=== PATIENT | male | born 1940 | race Two or more races ===

== ENCOUNTER 2018-10-21 19:10 | Inpatient (IN) | payer MEDICAID ==
[~2018-10-21] VITALS: Ht 170.2 cm; Wt 89.5 kg
[2018-10-21 19:45] LABS: BG BASE EXCESS -5.4 mmol/L (-2.0-2.0); BG BILEVEL POS AIRWAY PRESSURE 15/5; BG CARBOXYHEMOGLOBIN 0.2 % (0.5-1.5); BG DEOXYHEMOGLOBIN 1.9 % (0.0-5.0); BG FRACTION INSPIRED OXYGEN 50; BG HCO3 ACT 19.5 mmol/L (22.0-26.0); BG METHEMOGLOBIN 0.3 % (0.0-1.5); BG OXYGEN SATURATION 98.1 % (92.0-98.5); BG OXYHEMOGLOBIN 97.6 % (94.0-97.0); BG PH 7.352 (7.350-7.450); BG PO2 128.1 mmHg (75.0-100.0); BG SAMPLE SITE RIGHT RADIAL; BG TOTAL HEMOGLOBIN 11.6 g/dL (12.0-18.0); BG VENT MODE MASK - BIPAP; BG VENT RATE 14 set
[2018-10-21 19:58] LABS: HEMATOCRIT. 35.5 % (42.0-52.0); HEMOGLOBIN. 10.6 g/dL (14.0-18.0); MEAN CORPUSCULAR HEMOGLOBIN 18.2 pg (28.0-32.0); MEAN CORPUSCULAR VOLUME 60.8 fL (80.0-94.0); MEAN PLATELET VOLUME 10.1 fl (7.4-10.4); PLATELET 122 x1000/uL (130-400); RED BLOOD CELL COUNT 5.84 mill/uL (4.7-6.1); RED CELL DISTRIBUTION WIDTH 17.7 % (11.6-14.6)
[2018-10-21 20:02] LABS: CHLORIDE 111 mEq/L (98-107)
[2018-10-21] MEDS ORDERED: ENALAPRIL 2.5MG/2ML VIAL 2ML IV ONE (20:30)
[2018-10-21] MEDS ORDERED: FUROSEMIDE 40MG/4ML VIAL IVP ONE (20:30)
[2018-10-21 20:36] LABS: PLATELET ESTIMATE NORMAL
[2018-10-21] MEDS ORDERED: ALBUTEROL (0.083%) 2.5MG/3ML NEB HHN ONE (20:45)
[2018-10-21] MEDS ORDERED: DEXTROSE 50% WATER 50ML SYRINGE IV ONE (20:45)
[2018-10-21] MEDS ORDERED: INSULIN REGULAR (HUMULIN R) 300UNITS/3ML IV ONE (20:45)
[2018-10-21] MEDS ORDERED: SODIUM BICARBONATE 8.4% 1 MEQ/ML 50ML SYR IV ONE (20:45)
[2018-10-21] MEDS ORDERED: ENOXAPARIN 40MG/0.4ML SYR SUBCUT SCH (21:00)
[2018-10-21] MEDS ORDERED: ONDANSETRON HCL 4MG/2ML INJ IV PRN (21:00)
[2018-10-21] MEDS ORDERED: ZOLPIDEM TARTRATE 5MG TABLET PO PRN (21:00)
[2018-10-21] MEDS ORDERED: FAMOTIDINE 20MG TABLET PO SCH (21:00)
[2018-10-21] MEDS ORDERED: CLONIDINE 0.1MG TABLET PO PRN (21:00)
[2018-10-21] MEDS ORDERED: MAGNESIUM/ALUMINUM HYDROXIDE/SIMETHICONE 30ML UDC PO PRN (21:00)
[2018-10-21] MEDS ORDERED: NITROGLYCERIN 0.4MG TABLET SL SL PRN (21:00)
[2018-10-21] MEDS ORDERED: ACETAMINOPHEN 325MG TABLET PO PRN (21:00)
[2018-10-21] MEDS ORDERED: GUAIFENESIN 200MG/10ML SUGAR FREE UDC PO PRN (21:00)
[2018-10-21] MEDS ORDERED: DOCUSATE SODIUM 100MG CAPSULE PO PRN (21:00)
[2018-10-21] MEDS ORDERED: TRAMADOL 50MG TABLET PO PRN ×2 (21:00→21:45)
[2018-10-21] MEDS ORDERED: IPRATROPIUM/ALBUTEROL 0.5-3(2.5)MG/3ML NEB INH PRN (21:00)
[2018-10-21 21:12] LABS: ETHANOL BLOOD < 10 mg/dL
[2018-10-21 21:14] LABS: LDL CHOLESTEROL 62 mg/dL (5-100)
[2018-10-21 21:15] LABS: HDL CHOLESTEROL 92 mg/dL (40-59)
[2018-10-21] MEDS ORDERED: DEXTROSE 50% WATER 50ML SYRINGE IV PRN (22:30)
[2018-10-21 22:46] LABS: TOTAL IRON BINDING CAPACITY 175 ug/dL (250-450)
[2018-10-21 22:49] LABS: PARTIAL THROMBOPLASTIN TIME 26.6 sec (23.4-31.0); PROTHROMBIN TIME 10.2 sec (9.1-11.1)
[2018-10-21] MEDS: FUROSEMIDE 40MG/4ML VIAL IVP SCH (23:00)
[2018-10-21] MEDS ORDERED: SODIUM POLYSTYRENE SULFONATE 15 G/60 ML BOT PO SCH (23:00)
[2018-10-21 23:07] LABS: FOLIC ACID (FOLATE) SERUM 12.8 ng/mL (>5.38)
[2018-10-21 23:15] VITALS: BP 139/75
[2018-10-21] MEDS ORDERED: METOLAZONE 5MG TABLET PO SCH (23:15)
[2018-10-22] VITALS (20 sets, daily range): BP systolic 91–148; BP diastolic 45–91
[2018-10-22] MEDS ORDERED: ENOXAPARIN 100MG/ML SYR SUBCUT SCH
[2018-10-22] MEDS ORDERED: METOLAZONE 10MG TABLET PO SCH
[2018-10-22] MEDS: DILTIAZEM HCL 60MG TABLET PO SCH ×5 (00:01→23:58)
[2018-10-22 01:13] LABS: CREATINE KINASE MB FRACTION 5.1 ng/mL (0.5-3.6)
[2018-10-22 07:20] LABS: CREATINE KINASE MB FRACTION 4.9 ng/mL (0.5-3.6)
[2018-10-22] MEDS: INSULIN LISPRO 100 UNITS/ML SUBCUT SCH ×4 (08:00→21:00)
[2018-10-22] MEDS: BLOOD SUGAR DIAGNOSTIC STRIP TEST SCH ×4 (08:20→21:00)
[2018-10-22] MEDS: FAMOTIDINE 20MG TABLET PO SCH (09:03)
[2018-10-22] MEDS: FUROSEMIDE 40MG/4ML VIAL IVP SCH ×2 (09:03→22:43)
[2018-10-22] MEDS: ASPIRIN 325MG EC TABLET PO SCH (09:03)
[2018-10-22] MEDS ORDERED: METOLAZONE 10MG TABLET PO NR (14:00)
[2018-10-22] MEDS ORDERED: SODIUM POLYSTYRENE SULFONATE 15 G/60 ML BOT PO NR (14:00)
[2018-10-22] MEDS: CITRIC ACID/SODIUM CITRATE SOLN 15ML UDC PO SCH ×2 (14:27→17:23)
[2018-10-22] MEDS: IPRATROPIUM/ALBUTEROL 0.5-3(2.5)MG/3ML NEB HHN SCH (21:08)
[2018-10-22] MEDS: ENOXAPARIN 100MG/ML SYR SUBCUT SCH (23:59)
[2018-10-23] VITALS (12 sets, daily range): BP systolic 75–138; BP diastolic 49–78
[2018-10-23] MEDS: IPRATROPIUM/ALBUTEROL 0.5-3(2.5)MG/3ML NEB HHN SCH ×4 (02:23→20:45)
[2018-10-23] MEDS: DILTIAZEM HCL 60MG TABLET PO SCH ×2 (04:54→12:41)
[2018-10-23 07:21] LABS: PHOSPHORUS 4.6 mg/dL (2.5-4.9)
[2018-10-23 07:26] LABS: HEMATOCRIT. 33.9 % (42.0-52.0); HEMOGLOBIN. 10.3 g/dL (14.0-18.0); MEAN CORPUSCULAR HEMOGLOBIN 18.2 pg (28.0-32.0); RED BLOOD CELL COUNT 5.65 mill/uL (4.7-6.1); RED CELL DISTRIBUTION WIDTH 17.4 % (11.6-14.6)
[2018-10-23 07:30] LABS: HEPATITIS B SURFACE ANTIGEN NEGATIVE
[2018-10-23] MEDS: BLOOD SUGAR DIAGNOSTIC STRIP TEST SCH ×4 (07:57→21:54)
[2018-10-23] MEDS: INSULIN LISPRO 100 UNITS/ML SUBCUT SCH ×4 (07:57→23:37)
[2018-10-23 07:58] LABS: HEPATITIS A AB IGM NEGATIVE (NEGATIVE)
[2018-10-23 08:34] LABS: BG BASE EXCESS 0.3 mmol/L (-2.0-2.0); BG CARBOXYHEMOGLOBIN 0.1 % (0.5-1.5); BG FRACTION INSPIRED OXYGEN 21; BG HCO3 ACT 25.3 mmol/L (22.0-26.0); BG OXYHEMOGLOBIN 95.9 % (94.0-97.0); BG PCO2 42.3 mmHg (35.0-45.0); BG PH 7.395 (7.350-7.450); BG PO2 84.9 mmHg (75.0-100.0); BG SAMPLE SITE RIGHT BRACHIAL; BG VENT MODE ROOM AIR
[2018-10-23] MEDS: CITRIC ACID/SODIUM CITRATE SOLN 15ML UDC PO SCH ×3 (08:58→18:01)
[2018-10-23] MEDS: ASPIRIN 325MG EC TABLET PO SCH (08:58)
[2018-10-23] MEDS: FUROSEMIDE 40MG/4ML VIAL IVP SCH ×2 (08:58→21:52)
[2018-10-23] MEDS: FAMOTIDINE 20MG TABLET PO SCH (08:58)
[2018-10-23] MEDS ORDERED: REGADENOSON 0.4 MG/5 ML IV NR (14:15)
[2018-10-23] MEDS: LOSARTAN POTASSIUM 50 MG TABLET PO SCH (15:04)
[2018-10-23] MEDS: AMIODARONE HCL 200 MG TABLET PO SCH ×2 (15:04→21:53)
[2018-10-23 15:37] LABS: CLARITY URINE CLEAR (CLEAR); COLOR URINE YELLOW (YELLOW); KETONES URINE NEGATIVE (NEGATIVE); LEUKOCYTE ESTERASE URINE NEGATIVE (NEGATIVE); NITRITE URINE NEGATIVE (NEGATIVE); OCCULT BLOOD URINE 1+ (NEGATIVE); PROTEIN URINE 2+ (NEGATIVE); SPECIFIC GRAVITY URINE 1.009 (1.005-1.030); UROBILINOGEN URINE 0.2 E.U./dL (0.2-1.0)
[2018-10-23 16:30] LABS: *AMPHETAMINES SCREEN URINE NEGATIVE (NEGATIVE); *BARBITURATES SCREEN URINE NEGATIVE (NEGATIVE); *BENZODIAZEPINES SCREEN URINE NEGATIVE (NEGATIVE); CANNABINOID URINE SCREEN NEGATIVE (NEGATIVE); PHENCYCLIDINE URINE SCREEN NEGATIVE (NEGATIVE)
[2018-10-23 16:31] LABS: *COCAINE SCREEN URINE NEGATIVE (NEGATIVE); METHADONE URINE SCREEN NEGATIVE (NEGATIVE); OPIATES URINE SCREEN NEGATIVE (NEGATIVE)
[2018-10-23 17:57] LABS: PLATELET ESTIMATE SLIGHTLY DECREASED
[2018-10-23 17:58] LABS: MEAN PLATELET VOLUME 10.6 fl (7.4-10.4); PLATELET 130 x1000/uL (130-400)
[2018-10-23] MEDS: CARVEDILOL 3.125 MG TABLET PO SCH (21:00)
[2018-10-23] MEDS: ENOXAPARIN 100MG/ML SYR SUBCUT SCH (23:35)
[2018-10-24] VITALS (12 sets, daily range): BP systolic 107–156; BP diastolic 53–87
[2018-10-24] MEDS: IPRATROPIUM/ALBUTEROL 0.5-3(2.5)MG/3ML NEB HHN SCH ×4 (01:30→20:50)
[2018-10-24 07:35] LABS: HEMATOCRIT. 34.8 % (42.0-52.0); HEMOGLOBIN. 10.8 g/dL (14.0-18.0); MEAN CORPUSCULAR HEMOGLOBIN 18.3 pg (28.0-32.0); MEAN CORPUSCULAR VOLUME 59.4 fL (80.0-94.0); MEAN PLATELET VOLUME 10.3 fl (7.4-10.4); PLATELET 116 x1000/uL (130-400); RED BLOOD CELL COUNT 5.86 mill/uL (4.7-6.1); RED CELL DISTRIBUTION WIDTH 16.8 % (11.6-14.6)
[2018-10-24 07:45] LABS: PHOSPHORUS 5.3 mg/dL (2.5-4.9)
[2018-10-24] MEDS: INSULIN LISPRO 100 UNITS/ML SUBCUT SCH ×4 (08:00→21:00)
[2018-10-24] MEDS: BLOOD SUGAR DIAGNOSTIC STRIP TEST SCH ×4 (08:05→21:41)
[2018-10-24 08:47] LABS: BG BASE EXCESS 3.6 mmol/L (-2.0-2.0); BG CARBOXYHEMOGLOBIN 0.8 % (0.5-1.5); BG DEOXYHEMOGLOBIN 5.8 % (0.0-5.0); BG FRACTION INSPIRED OXYGEN 21; BG HCO3 ACT 28.5 mmol/L (22.0-26.0); BG METHEMOGLOBIN 0.8 % (0.0-1.5); BG OXYGEN SATURATION 94.1 % (92.0-98.5); BG OXYHEMOGLOBIN 92.6 % (94.0-97.0); BG PCO2 44.3 mmHg (35.0-45.0); BG PH 7.426 (7.350-7.450); BG PO2 75.9 mmHg (75.0-100.0); BG SAMPLE SITE RIGHT RADIAL; BG TOTAL HEMOGLOBIN 12.7 g/dL (12.0-18.0); BG VENT MODE T-TUBE
[2018-10-24] MEDS: CITRIC ACID/SODIUM CITRATE SOLN 15ML UDC PO SCH (08:49)
[2018-10-24] MEDS: AMIODARONE HCL 200 MG TABLET PO SCH ×2 (08:49→21:41)
[2018-10-24] MEDS: ASPIRIN 325MG EC TABLET PO SCH (08:50)
[2018-10-24] MEDS: FUROSEMIDE 40MG/4ML VIAL IVP SCH (08:50)
[2018-10-24] MEDS: LOSARTAN POTASSIUM 50 MG TABLET PO SCH (08:50)
[2018-10-24] MEDS: FAMOTIDINE 20MG TABLET PO SCH (08:50)
[2018-10-24] MEDS: CARVEDILOL 3.125 MG TABLET PO SCH ×2 (08:50→21:40)
[2018-10-24] MEDS ORDERED: MAGNESIUM 2 G PREMIX 50 ML IV NR (11:00)
[2018-10-24] MEDS ORDERED: FUROSEMIDE 40MG/4ML VIAL IVP SCH (21:00)
[2018-10-25] VITALS (10 sets, daily range): BP systolic 100–142; BP diastolic 61–78
[2018-10-25] MEDS: IPRATROPIUM/ALBUTEROL 0.5-3(2.5)MG/3ML NEB HHN SCH ×2 (02:22→07:59)
[2018-10-25] MEDS: ENOXAPARIN 100MG/ML SYR SUBCUT SCH (02:43)
[2018-10-25 06:57] LABS: PLATELET ESTIMATE DECREASED
[2018-10-25 07:21] LABS: PHOSPHORUS 4.8 mg/dL (2.5-4.9)
[2018-10-25 07:23] LABS: BASOPHILS % 0.6 % (0.0-2.0); EOSINOPHILS % 4.4 % (0.0-5.0); HEMATOCRIT. 37.5 % (42.0-52.0); HEMOGLOBIN. 11.5 g/dL (14.0-18.0); LYMPHOCYTES % 26.7 % (20.0-50.0); MEAN CORPUSCULAR HEMOGLOBIN 18.3 pg (28.0-32.0); MEAN CORPUSCULAR VOLUME 59.8 fL (80.0-94.0); MONOCYTES % 6.2 % (2.0-8.0); NEUTROPHILS % 62.1 % (40.0-76.0); RED BLOOD CELL COUNT 6.26 mill/uL (4.7-6.1); RED CELL DISTRIBUTION WIDTH 16.9 % (11.6-14.6)
[2018-10-25] MEDS: BLOOD SUGAR DIAGNOSTIC STRIP TEST SCH ×2 (07:30→13:06)
[2018-10-25] MEDS: INSULIN LISPRO 100 UNITS/ML SUBCUT SCH ×2 (08:00→13:00)
[2018-10-25 08:37] LABS: MEAN PLATELET VOLUME 10.7 fl (7.4-10.4); PLATELET 120 x1000/uL (130-400); PLATELET ESTIMATE NORMAL
[2018-10-25] MEDS: AMIODARONE HCL 200 MG TABLET PO SCH (09:00)
[2018-10-25] MEDS: FAMOTIDINE 20MG TABLET PO SCH (09:00)
[2018-10-25] MEDS: ASPIRIN 325MG EC TABLET PO SCH (09:00)
[2018-10-25] MEDS ORDERED: REGADENOSON 0.4 MG/5 ML IV ONE (10:11)
[2018-10-25] MEDS ORDERED: CARVEDILOL 6.25 MG TABLET PO SCH (21:00)
[2018-10-26 06:18] LABS: HIV SCREEN 4G Non Reactive (Non Reactive)
[2018-10-26] MEDS ORDERED: LOSARTAN POTASSIUM 25 MG TABLET PO SCH (09:00)
== END 2018-10-25 15:00 | disposition home or self-care (01) | DRG 194 ==
LOC: ER 19:10 → 5EST 20:34 → EDBEDREQTM 20:36 → EDBEDREQ 20:36 → EDBEDREQSVC 20:36 → ENRESERV 21:26
PROVIDERS: ADMIT Internal Medicine; ATTEND Internal Medicine
PROC: 5A09357 Assistance with Respiratory Ventilation, Less than 24 Consecutive Hours, Continuous Positive Airway Pressure (ICD-10-PCS; principal; 2018-10-21)
DX: I11.0 Hypertensive heart disease with heart failure (principal); J96.01 Acute respiratory failure with hypoxia; N17.0 Acute kidney failure with tubular necrosis; E43 Unspecified severe protein-calorie malnutrition; D69.6 Thrombocytopenia, unspecified; E11.65 Type 2 diabetes mellitus with hyperglycemia; E11.649 Type 2 diabetes mellitus with hypoglycemia without coma; E87.2 Acidosis; I50.43 Acute on chronic combined systolic (congestive) and diastolic (congestive) heart failure; R74.0 Nonspecific elevation of levels of transaminase and lactic acid dehydrogenase [LDH]; I42.0 Dilated cardiomyopathy; I25.5 Ischemic cardiomyopathy; E87.5 Hyperkalemia; I48.0 Paroxysmal atrial fibrillation; I48.92 Unspecified atrial flutter; D63.8 Anemia in other chronic diseases classified elsewhere; I25.10 Atherosclerotic heart disease of native coronary artery without angina pectoris; I25.2 Old myocardial infarction; Z79.4 Long term (current) use of insulin; Z82.49 Family history of ischemic heart disease and other diseases of the circulatory system; Z95.5 Presence of coronary angioplasty implant and graft; Z68.30 Body mass index [BMI] 30.0-30.9, adult
CPT/HCPCS: 36415; 36600; 71045; 76770; 78452; 80048; 80061; 80305; 80320; 82375; 82550; 82553; 82570; 82607; 82746; 82805; 82962; 83036; 83540; 83550; 83735; 83880; 84100; 84132; 84300; 84484; 84540; 86705; 86709; 86803; 87340; 87389; 93005; 93017; 93306; 93970; 94660; 96365; 96375; 99285; A9500; J1650; J1815; J1940; J2785; J3475; J3490; J7050; J7620; G0480

== ENCOUNTER 2019-01-25 19:44 | Emergency (ER) | payer MEDICAID ==
[~2019-01-25] VITALS: Ht 167.6 cm; Wt 73.0 kg
[2019-01-25] MEDS ORDERED: LIDOCAINE HCL/PF 1% 10 MG/ML 5ML VIAL IJ ONE (20:45)
[2019-01-25] MEDS ORDERED: BACITRACIN ZINC OINT UDPKT TOP ONE (20:45)
[2019-01-25] MEDS ORDERED: TETANUS, DIPHTHERIA, PERTUSSIS VAC/PF 0.5ML (>7YR OLD) IM ONE (20:45)
[2019-01-25] MEDS ORDERED: CEPHALEXIN 250MG CAPSULE PO ONE (22:15)
[2019-01-25 22:46] VITALS: BP 152/81
== END 2019-01-25 22:48 | disposition home or self-care (01) ==
LOC: ER 19:44
DX: S91.311A Laceration without foreign body, right foot, initial encounter (principal); E11.9 Type 2 diabetes mellitus without complications; I11.0 Hypertensive heart disease with heart failure; I50.9 Heart failure, unspecified; I48.91 Unspecified atrial fibrillation; W22.8XXA Striking against or struck by other objects, initial encounter; Y93.89 Activity, other specified; Y92.89 Other specified places as the place of occurrence of the external cause; Y99.8 Other external cause status
CPT/HCPCS: 12002; 73630; 90471; 90715; 99283; A4217; J3490; Z7610

== ENCOUNTER 2019-06-21 15:14 | Emergency (ER) | payer MEDICAID ==
[~2019-06-21] VITALS: Ht 177.8 cm; Wt 77.0 kg
[2019-06-21] MEDS ORDERED: DOCUSATE SODIUM SUGAR FREE 100MG/10ML UDC PO ONE (16:45)
[2019-06-21] MEDS ORDERED: ONDANSETRON 4MG ODT PO ONE (16:45)
[2019-06-21 19:01] VITALS: BP 160/69
== END 2019-06-21 19:01 | disposition home or self-care (01) ==
LOC: ER 15:14
DX: H61.22 Impacted cerumen, left ear (principal); H92.02 Otalgia, left ear; E11.9 Type 2 diabetes mellitus without complications; I10 Essential (primary) hypertension
CPT/HCPCS: 69210; 99284; Q0162